=== PATIENT | female | born 1985 | race Two or more races ===

== ENCOUNTER 2024-08-14 16:49 | Emergency (ER) | payer OTHER ==
[~2024-08-14] VITALS: Ht 162.6 cm; Wt 90.1 kg
[2024-08-14] MEDS ORDERED: ACET500T58 PO (20:04)
[2024-08-14] MEDS ORDERED: PRED20TA2 PO (20:04)
--- NOTE | 2024-08-14 20:05 | ED.PDOC ---
History of Present Illness HPI Comments 39-year-old female presents to ER with complaints of flu-like symptoms x3 days. Patient reports he has been experiencing dry cough, congestion and runny nose x3 days with associated intermittent fever x one day. Reports that she has been taking Mucinex and OTC ibuprofen for symptoms without relief. Denies any current pain. Patient presents to ER afebrile, ambulatory, with steady gait, in no distress and states she has been around her daughter who has also been experiencing similar symptoms. Denies shortness of breath, chest pain, hemoptysis, nausea/vomiting, headache, body aches, chills, abdominal pain, changes in urination/BM or any further symptoms/complaints Chief Complaint: Flu like Time Seen by MD: 18:19 Primary Care Provider: UNKNOWN Reviewed Notes: Nurses Notes, Medications, Allergies Information Source: Patient Past Medical History PAST MEDICAL HISTORY: Denies Surgical History: Denies all surgeries Family History Family History: Unknown Social History Smoker: Non-Smoker Alcohol: Denies ETOH Use Drugs: Denies Drug Use Lives In: Home Constitutional: See HPI EENTM: See HPI Respiratory: See HPI Cardiovascular: No Symptoms Reported Gastrointestinal: No Symptoms Reported Genitourinary: No Symptoms Reported Neurological: No Symptoms Reported Musculoskeletal: No Symptoms Reported Integumentary: No Symptoms Reported Allergic/Immunocompromised: others (DENIES) Hematologic/Lymphatic: No Symptoms Reported Endocrine: No Symptoms Reported Psychiatric: No symptoms Reported Physical Exam General Appearance: No Apparent Distress, Obese HEENT: Normal ENT Inspection, PERRL/EOMI, Pharynx Normal, TMs Normal Neck: Full Range of Motion, Non-Tender, Normal Respiratory: Chest Non-Tender, Lungs Clear, No Accessory Muscle Use, No Respiratory Distress, Normal Breath Sounds Cardiovascular: No Murmur, No Gallop, Regular Rate/Rhythm Breast Exam: Deferred Gastrointestinal: Non Tender, No Pulsatile Mass, Soft Genitalia: Deferred Pelvic: Deferred Rectal: Deferred Extremities: Normal capillary refill, Normal range of motion Neurologic: Alert, algebra tutor II-XII nml as Tested, No Motor Deficits, Normal Affect, Normal Mood, No Sensory Deficits Cerebellar Function: Normal Reflexes: Normal Skin: Dry, Normal Color, Warm Peripheral Pulses: 2+ Radial (R), 2+ Radial (L), 2+ Brachial (R), 2+ Brachial (L) Lymphatic: No Adenopathy Was a procedure done? Was a procedure done?: No Sedation Sedation?: No Fever Differential Dx Differential Diagnosis: Pneumonia, Sepsis, Pharyngitis, Other (COVID-19, influenza) X-Ray, Labs, Meds, VS Vital Signs Date Time Temp Pulse Resp B/P (MAP) Pulse Ox O2 Delivery O2 Flow Rate FiO2 08/14/24 20:28 95 16 96 Room Air 08/14/24 20:28 98.6 95 16 112/80 (91) 96 98.6 08/14/24 17:33 98.8 98 18 146/86 (106) 100 Lab Test 08/14/24 18:52 Range/Units Influenza Type A Antigen Negative Negative Influenza Type B Antigen Negative Negative SARS-CoV-2 Antigen (Rapid) Negative NEGATIVE Joselin reviewed - negative Influenza A & B reviewed - negative Solu-Medrol 125 mg IM ordered Patient tolerating p.o. intake well and in no distress during ER visit/prior to discharge Advised to drink plenty of fluids Advised to follow up with PCP in 1-2 days Patient verbalized understanding and agreeable with current plan of care Advised to return to ER immediately if symptoms worsen Time of 1ST Reevaluation: 19:40 Reevaluation 1ST: N/A Patient Education/Counseling: Diagnosis, Treatment, Prognosis, Need For Follow Up Family Education/Counseling: No Family Present Departure 1 Departure Time of Disposition: 20:02 Impression: Primary Impression: Viral URI Disposition: 01 HOME / SELF CARE / HOMELESS Condition: Stable e-Prescriptions Prednisone (Prednisone) 20 Mg Tab 20 MG PO BID for 5 Days, #10 TAB 0 Refills Prov: MENDEZ NERI 08/14/24 Acetaminophen (Acetaminophen) 500 Mg Tab 500 MG PO Q4HPRN, #30 TAB 0 Refills Prov: MENDEZ NERI 08/14/24 Discharged With: Self Critical Care Note Critical Care Time?: No Stability Stability form required: No Heart Score Heart Score: Heart Score Response (Comments) Value History N/A 0 EKG N/A 0 Age N/A 0 Risk Factors N/A 0 Troponin N/A 0 Total 0 MENDEZ NERI Aug 14, 2024 20:05
[2024-08-14 20:28] VITALS: BP 112/80; PULSE 95; RESP 16; TEMP 98.6; O2SAT 96
[2024-08-14 20:31] LABS: Rapid Influenza A Negative (Negative); Rapid Influenza B Negative (Negative)
[2024-08-14 20:32] LABS: COVID19 ANTIGEN SOFIA FIA NEGATIVE (NEGATIVE)
[2024-08-14] MEDS: methylPREDNISolone SOD SUCC 125 MG/2 ML VL IM ONE (21:05)
== END 2024-08-14 21:24 | disposition home or self-care (01) ==
LOC: ER 16:49
DX: B97.89 Other viral agents as the cause of diseases classified elsewhere (principal); J06.9 Acute upper respiratory infection, unspecified; Z20.822 Contact with and (suspected) exposure to COVID-19
CPT/HCPCS: 36415; 87426; 87804; 96372; 99283; J2919